=== PATIENT | female | born 1990 | race Caucasian/White ===

== ENCOUNTER → 2018-03-18 | Outpatient (CLI) | payer BC ==
[~2018-03-18] MED LIST: ACYC800 PO; CIPR500 PO; HYDACE5325 PO; IBUP800 PO; OXYACE5T PO; PENVK500 PO; PROM25 PO; SULTRIDS PO
== END ==
LOC: LAB 11:18 → LAB SHORT 11:18
PROVIDERS: Obstetrics & Gynecology
DX: Z01.419 Encounter for gynecological examination (general) (routine) without abnormal findings (principal)
CPT/HCPCS: G0123

== ENCOUNTER 2021-11-04 19:52 | Emergency (ER) | payer BC ==
[~2021-11-04] VITALS: Ht 180.3 cm; Wt 172.4 kg
[2021-11-04 20:42] LABS: BASOPHILS ABSOLUTE AUTO 0.08 K/mm3 (0.00-0.23); BASOPHILS PERCENT AUTO 1 % (0-2); EOSINOPHILS ABSOLUTE AUTO 0.11 K/mm3 (0.00-0.68); EOSINOPHILS PERCENT AUTO 1 % (0-6); Hematocrit 44.1 % (33.0-51.0); Hemoglobin 15.2 g/dL (11.5-16.0); IMMATURE GRAN ABSOLUTE AUTO 0.02 K/mm3 (0.00-0.10); IMMATURE GRAN PERCENT AUTO 0 % (0-1); LYMPHOCYTES PERCENT AUTO 27 % (21-46); MONOCYTES PERCENT AUTO 6 % (4-13); Mean Corpuscular HGB 29.5 pg (26.0-34.0); Mean Corpuscular HGB Conc 34.5 g/dL (31.5-36.5); Mean Corpuscular Volume 86 fL (80-100); Mean Platelet Volume 10.2 fL (9.1-12.4); NEUTROPHILS ABSOLUTE AUTO 7.47 K/mm3 (1.96-9.15); NEUTROPHILS PERCENT AUTO 65 % (41-73); Platelet Count 297 K/mm3 (150-400); RDW Coefficient Variation 12.2 % (11.7-14.2); RDW Standard Deviation 38.2 fL (35.1-46.3); Red Blood Cell Count 5.15 M/mm3 (3.80-5.20); White Blood Cell Count 11.48 K/mm3 (4.00-11.30)
[2021-11-04 21:07] LABS: Source, Urine Clean Catch
[2021-11-04 21:07] LABS: Alanine Aminotransfer (ALT/SGP 40 U/L (12-78); Albumin, Blood 3.9 g/dL (3.4-5.0); Alk Phos 107 U/L (50-136); Anion Gap 9 mmol/L (6-16); Aspartate Aminotrans (AST/SGOT 30 U/L (12-37); Bilirubin, Total 0.5 mg/dL (0.1-1.0); Blood Urea Nitrogen 11 mg/dL (8-24); Bun/Creatinine Ratio 14.8 (12.0-20.0); CO2, Blood 28 mmol/L (21-32); Calcium, Blood 9.1 mg/dL (8.5-10.1); Chloride, Blood 106 mmol/L (98-108); Creatinine, Blood 0.74 mg/dL (0.40-1.00); Globulin, Blood 4.1 g/dL (2.2-4.0); Glomerular Filtration Rate >60 (60-); Glucose, Blood 87 mg/dL (70-99); Potassium, Blood 3.9 mmol/L (3.5-5.5); Sodium, Blood 143 mmol/L (136-145)
[2021-11-04 21:11] LABS: Appearance, Urine Cloudy (Clear); Bilirubin, Urine Neg (Neg); Blood, Urine 2+ (Neg); Color, Urine Yellow (P-Yellow); Glucose Qualitative, Urine Neg (Neg); Ketones, Urine Neg (Neg); Leukocyte Esterase, Urine 2+ (Neg); Nitrite, Urine Neg (Neg); Protein, Urine 1+ (Neg); Urobilinogen, Urine 1+ (Normal)
[2021-11-04 21:30] LABS: Bacteria Many /hpf; Mucus Heavy (0-Heavy); Red Blood Cells, Urine 0-2 /hpf (0-2); Squamous Epithelial Cells Many /hpf (Few)
[2021-11-04 21:31] LABS: Hyaline Casts 0-2 /lpf (0-2); Transitional Epithelial Cells Rare /hpf (0-Rare)
[2021-11-05] MEDS ORDERED: CEFD300 PO (02:28)
[2021-11-05] MEDS ORDERED: METR500 PO (02:28)
== END 2021-11-05 02:50 | disposition home or self-care (01) ==
LOC: ER 19:52
PROVIDERS: Physician Assistant
DX: N39.0 Urinary tract infection, site not specified (principal)
CPT/HCPCS: 36415; 74176; 80053; 81001; 84703; 85025; 86850; 86900; 86901; 87086; 96365; 96375; 99284-25; J0696; J1885; J2405

== ENCOUNTER → 2022-02-20 | Outpatient (CLI) | payer BC ==
[~2022-02-20] MED LIST changes: +ATOR10 PO; +CEFD300 PO; +DECARA1250 MC1 PO; +MEDR10 PO; +METFORMIN HCL500 M3 PO; +METR500 PO; +PROG100 PO; +SPIRONOLACTONE50 MG PO
== END ==
LOC: LAB 13:35 → LAB SHORT 13:35
DX: N85.9 Noninflammatory disorder of uterus, unspecified (principal)
CPT/HCPCS: 88305

== ENCOUNTER 2022-03-22 09:04 | Day surgery (SDC) | payer BC ==
[~2022-03-22] VITALS: Ht 180.3 cm; Wt 168.6 kg
--- NOTE | 2022-03-22 11:41 | NUR ---
STATES SHE FEELS THE NEED TO " USE RESTROOM" NO PAIN EXPLAINED IN/OUT CATH WAS DONE
--- NOTE | 2022-03-22 12:08 | NUR ---
PT TO STEP. DENIES PAIN OR NAUSES. STATES SHE FEELS SHE NEEDS TO VOICE. SMALL AMOUNT OF RED DRAINAGE NOTED ON ALBA PAD. MODERATE AMOUNT OF RED DRAINAGE ON BED. UP TO BATHROOM TO VOID.
--- NOTE | 2022-03-22 12:32 | NUR ---
REPORT GIVEN TO STEFANY MCKEON RN.
--- NOTE | 2022-03-22 13:01 | NUR ---
1240- Discharge instructions reviewed with patient. Patient verbalizes understanding. Copy given to patient to take home. PT SLOWLY GETTING DRESSED. STATES STILL FEELS ALITTLE NAUSEATED BUT HAS BEEN ABLE TO TAKE DOWN WATER AND JELLO. DRESSED, GAVE 2ND DOSE OF PERCOCET PER ORDER. 7/10 PELVIC PAIN. ALBA PAD WAS CHANGED, SMALL AMOUNT OF BRIGHT RED BLOOD THAT APPEARED TO BE WATERY ON PAD. Discharged via wheelchair to private car for ride home. AND CRACKERS SENT WITH PT.
== END 2022-03-22 13:04 | disposition home or self-care (01) ==
LOC: ORSCMMR 09:04 → ORD 10:30 → ORSCMMR 10:30
PROVIDERS: Obstetrics & Gynecology
PROC: 0UDB8ZX Extraction of Endometrium, Via Natural or Artificial Opening Endoscopic, Diagnostic (ICD-10-PCS; principal; 2022-03-22 10:30)
PROC: 0UH97HZ Insertion of Contraceptive Device into Uterus, Via Natural or Artificial Opening (ICD-10-PCS; principal; 2022-03-22 10:30)
DX: N85.02 Endometrial intraepithelial neoplasia [EIN] (principal); E78.5 Hyperlipidemia, unspecified; K21.9 Gastro-esophageal reflux disease without esophagitis; E28.2 Polycystic ovarian syndrome; E66.01 Morbid (severe) obesity due to excess calories; Z68.43 Body mass index [BMI] 50.0-59.9, adult; Z79.84 Long term (current) use of oral hypoglycemic drugs; Z79.899 Other long term (current) drug therapy
CPT/HCPCS: 88305; A9270; J1100; J1885; J2250; J2370; J2405; J2704; J2765; J3010; J7120; J7298

== ENCOUNTER 2022-06-10 09:01 | Day surgery (SDC) | payer BC ==
[~2022-06-10] VITALS: Ht 180.3 cm; Wt 163.1 kg
[~2022-06-10 09:01] MED LIST changes: +ANAS1 PO; +B-100 COMPLEX1 EACH PO; +FERSU300 PO; +KRILL OIL 1,001 EACH PO; +Phentermine HCl15 MG PO
--- NOTE | 2022-06-10 10:03 | NUR ---
Ambulatory in Day Surgery. History, Chart, Medications and Allergies reviewed before start of procedure. Patient States Post-Procedure ride home has been arranged .
--- NOTE | 2022-06-10 11:30 | NUR ---
06/10/22 1130 Ascencion Guerrero EXISTING IUD REMOVED BY . DISCARDED PER MD AND PT. NO ABX PER MD. 100CC CLEAR YELLOW URINE IN TRIVEDI UPON DC.
--- NOTE | 2022-06-10 12:49 | NUR ---
Patient up to Ambulate independently. Gait steady. Discharge instructions reviewed with patient. Patient verbalizes understanding. Copy given to patient to take home. Patient States Post-Procedure ride home has been arranged. Discharged via wheelchair to private car for ride home.
== END 2022-06-10 23:48 | disposition home or self-care (01) ==
LOC: ORSCMMR 09:01 → ORD 09:45 → ORSCMMR 09:45 → ORD 10:30 → ORSCMMR 23:48
PROVIDERS: Obstetrics & Gynecology
PROC: 0UH97HZ Insertion of Contraceptive Device into Uterus, Via Natural or Artificial Opening (ICD-10-PCS; principal; 2022-06-10 10:15)
PROC: 0UDB8ZX Extraction of Endometrium, Via Natural or Artificial Opening Endoscopic, Diagnostic (ICD-10-PCS; principal; 2022-06-10 10:15)
PROC: 0UB98ZX Excision of Uterus, Via Natural or Artificial Opening Endoscopic, Diagnostic (ICD-10-PCS; principal; 2022-06-10 10:15)
DX: N85.02 Endometrial intraepithelial neoplasia [EIN] (principal); E28.2 Polycystic ovarian syndrome; F41.8 Other specified anxiety disorders; E66.01 Morbid (severe) obesity due to excess calories; Z68.43 Body mass index [BMI] 50.0-59.9, adult; Z79.899 Other long term (current) drug therapy
CPT/HCPCS: 88305; A9270; J1100; J1885; J2250; J2405; J2704; J3010; J7120; J7298

== ENCOUNTER 2022-09-16 05:59 | Day surgery (SDC) | payer BC ==
[~2022-09-16] VITALS: Ht 180.3 cm; Wt 155.0 kg
[~2022-09-16 05:59] MED LIST changes: +WEGOVY0.5 MG/0.5 SC
--- NOTE | 2022-09-16 07:57 | NUR ---
09/16/22 0757 No Strauss (LEVONORGESTREL 52MG) IUD LOT# [id number] EXP: SEP 2024
--- NOTE | 2022-09-16 09:20 | NUR ---
Ambulatory in Day SurgeryPatient up to Ambulate independently. Gait steady. Discharge instructions reviewed with patient. Patient verbalizes understanding. Copy given to patient to take home. Patient States Post-Procedure ride home has been arranged. Discharged via wheelchair to private car for ride home. PT HAS SCANT BRIGHT RED BLEEDING ON PAD, PT WAS ABLE TO VOID MODERATE AMOUNTS OF URIN BEFORE DISCHARGE HOME
== END 2022-09-16 23:16 | disposition home or self-care (01) ==
LOC: ORSCMMR 05:59 → ORD 07:30 → ORSCMMR 23:16
PROVIDERS: Obstetrics & Gynecology
PROC: 0UDB8ZX Extraction of Endometrium, Via Natural or Artificial Opening Endoscopic, Diagnostic (ICD-10-PCS; principal; 2022-09-16 07:30)
PROC: 0U2DXHZ Change Contraceptive Device in Uterus and Cervix, External Approach (ICD-10-PCS; principal; 2022-09-16 07:30)
DX: N85.02 Endometrial intraepithelial neoplasia [EIN] (principal); Z30.2 Encounter for sterilization; E78.5 Hyperlipidemia, unspecified; E28.2 Polycystic ovarian syndrome; E66.01 Morbid (severe) obesity due to excess calories; Z68.42 Body mass index [BMI] 45.0-49.9, adult; Z79.899 Other long term (current) drug therapy
CPT/HCPCS: 88305; J1100; J1885; J2250; J2405; J2704; J3010; J7120; J7298

== ENCOUNTER 2022-12-15 10:19 | Emergency (ER) | payer BC ==
[~2022-12-15] VITALS: Ht 177.8 cm; Wt 144.7 kg
[~2022-12-15 10:19] MED LIST changes: +ONDA4ODT MM
[2022-12-15 10:57] LABS: BASOPHILS ABSOLUTE AUTO 0.08 K/mm3 (0.00-0.23); BASOPHILS PERCENT AUTO 1 % (0-2); EOSINOPHILS ABSOLUTE AUTO 0.43 K/mm3 (0.00-0.68); EOSINOPHILS PERCENT AUTO 4 % (0-6); Hematocrit 43.8 % (33.0-51.0); Hemoglobin 15.1 g/dL (11.5-16.0); IMMATURE GRAN ABSOLUTE AUTO 0.04 K/mm3 (0.00-0.10); IMMATURE GRAN PERCENT AUTO 0 % (0-1); LYMPHOCYTES ABSOLUTE AUTO 2.71 K/mm3 (0.84-5.20); LYMPHOCYTES PERCENT AUTO 22 % (21-46); MONOCYTES ABSOLUTE AUTO 0.57 K/mm3 (0.16-1.47); MONOCYTES PERCENT AUTO 5 % (4-13); Mean Corpuscular HGB 30.1 pg (26.0-34.0); Mean Corpuscular HGB Conc 34.5 g/dL (31.5-36.5); Mean Corpuscular Volume 87 fL (80-100); Mean Platelet Volume 10.3 fL (9.1-12.4); NEUTROPHILS ABSOLUTE AUTO 8.33 K/mm3 (1.96-9.15); NEUTROPHILS PERCENT AUTO 69 % (41-73); Platelet Count 294 K/mm3 (150-400); RDW Coefficient Variation 12.1 % (11.7-14.2); RDW Standard Deviation 38.8 fL (35.1-46.3); Red Blood Cell Count 5.01 M/mm3 (3.80-5.20); White Blood Cell Count 12.16 K/mm3 (4.00-11.30)
[2022-12-15 11:07] LABS: Source, Urine Clean Catch
[2022-12-15 11:11] LABS: Bilirubin, Urine Neg (Neg); Blood, Urine 1+ (Neg); Glucose Qualitative, Urine Neg (Neg); Ketones, Urine 1+ (Neg); Leukocyte Esterase, Urine 1+ (Neg); Nitrite, Urine Neg (Neg); Protein, Urine 1+ (Neg); Urobilinogen, Urine NORM (Normal)
[2022-12-15 11:25] LABS: Albumin/Globulin Ratio 0.9 (0.8-1.8); Bilirubin, Total 0.3 mg/dL (0.1-1.0); Bun/Creatinine Ratio 14.9 (12.0-20.0); Calcium, Blood 9.3 mg/dL (8.5-10.1); Creatinine, Blood 0.67 mg/dL (0.40-1.00); Globulin, Blood 4.4 g/dL (2.2-4.0); Potassium, Blood 3.8 mmol/L (3.5-5.5); Total Protein, Blood 8.4 g/dL (6.4-8.2)
[2022-12-15 12:05] LABS: Appearance, Urine Hazy (Clear); Color, Urine Yellow (P-Yellow)
[2022-12-15 12:07] LABS: Bacteria Mod /hpf; Red Blood Cells, Urine 0-2 /hpf (0-2); Squamous Epithelial Cells Few /hpf (Few)
[2022-12-15] MEDS ORDERED: DOCU100 PO (13:15)
[2022-12-15] MEDS ORDERED: Percocet 5-3251 EACH PO (13:15)
== END 2022-12-15 13:39 | disposition home or self-care (01) ==
LOC: ER 10:19
PROVIDERS: Emergency Medicine
DX: K63.89 Other specified diseases of intestine (principal); D72.829 Elevated white blood cell count, unspecified; Z79.899 Other long term (current) drug therapy
CPT/HCPCS: 36415; 74177; 80053; 81001; 84703; 85025; J2270; J2405; Q9967

== ENCOUNTER 2023-04-17 09:08 | Emergency (ER) | payer BC ==
[~2023-04-17] VITALS: Ht 180.3 cm; Wt 158.8 kg
[~2023-04-17 09:08] MED LIST changes: +DOCU100 PO; +Percocet 5-3251 EACH PO
[2023-04-17 09:19] VITALS: BP 158/112
[2023-04-17 09:50] LABS: Source, Urine Clean Catch
[2023-04-17 10:14] LABS: Appearance, Urine Hazy (Clear); Bilirubin, Urine Neg (Neg); Blood, Urine Neg (Neg); Color, Urine Yellow (P-Yellow); Glucose Qualitative, Urine Neg (Neg); Ketones, Urine Neg (Neg); Leukocyte Esterase, Urine 1+ (Neg); Nitrite, Urine Neg (Neg); Protein, Urine Neg (Neg); Urobilinogen, Urine NORM (Normal)
[2023-04-17 10:39] LABS: Bacteria Many /hpf; Hyaline Casts 0-2 /lpf (0-2); Squamous Epithelial Cells Mod /hpf (Few)
[2023-04-17 10:40] LABS: Red Blood Cells, Urine 0-2 /hpf (0-2)
[2023-04-17] MEDS ORDERED: NITR100CA PO (11:02)
== END 2023-04-17 11:15 | disposition home or self-care (01) ==
LOC: ER 09:08
PROVIDERS: Student in an Organized Health Care Education/Training Program
DX: N39.0 Urinary tract infection, site not specified (principal); M54.50 Low back pain, unspecified; R11.2 Nausea with vomiting, unspecified; R42 Dizziness and giddiness; R26.81 Unsteadiness on feet
CPT/HCPCS: 81001; A9270; J1885

== ENCOUNTER → 2023-10-27 | Outpatient (CLI) | payer BC ==
[~2023-10-27] MED LIST changes: +NITR100CA PO
== END | disposition home or self-care (01) ==
LOC: LAB 18:42 → LAB SHORT 18:42
DX: N39.0 Urinary tract infection, site not specified (principal)
CPT/HCPCS: 87086

== ENCOUNTER → 2023-12-11 | Outpatient (CLI) | payer BC | END | disposition home or self-care (01) | LOC: LAB 09:33 → LAB SHORT 09:33 | DX: R30.0 Dysuria (principal) | CPT/HCPCS: 87077; 87086; 87186 ==

== ENCOUNTER 2024-01-08 19:46 | Emergency (ER) | payer BC ==
[~2024-01-08] VITALS: Ht 180.3 cm; Wt 117.9 kg
[2024-01-08 20:32] LABS: BASOPHILS ABSOLUTE AUTO 0.07 K/mm3 (0.00-0.23); BASOPHILS PERCENT AUTO 1 % (0-2); EOSINOPHILS ABSOLUTE AUTO 0.13 K/mm3 (0.00-0.68); EOSINOPHILS PERCENT AUTO 1 % (0-6); Hematocrit 39.8 % (33.0-51.0); IMMATURE GRAN ABSOLUTE AUTO 0.03 K/mm3 (0.00-0.10); IMMATURE GRAN PERCENT AUTO 0 % (0-1); LYMPHOCYTES ABSOLUTE AUTO 3.33 K/mm3 (0.84-5.20); LYMPHOCYTES PERCENT AUTO 27 % (21-46); MONOCYTES ABSOLUTE AUTO 0.56 K/mm3 (0.16-1.47); MONOCYTES PERCENT AUTO 5 % (4-13); Mean Corpuscular HGB 29.8 pg (26.0-34.0); Mean Corpuscular HGB Conc 35.2 g/dL (31.5-36.5); Mean Corpuscular Volume 85 fL (80-100); Mean Platelet Volume 10.3 fL (9.1-12.4); NEUTROPHILS ABSOLUTE AUTO 8.04 K/mm3 (1.96-9.15); NEUTROPHILS PERCENT AUTO 66 % (41-73); Platelet Count 281 K/mm3 (150-400); RDW Coefficient Variation 11.9 % (11.7-14.2); RDW Standard Deviation 36.2 fL (35.1-46.3); White Blood Cell Count 12.16 K/mm3 (4.00-11.30)
[2024-01-08 20:50] LABS: Albumin, Blood 3.5 g/dL (3.4-5.0); Albumin/Globulin Ratio 0.8 (0.8-1.8); Bilirubin, Total 0.3 mg/dL (0.1-1.0); Calcium, Blood 9.4 mg/dL (8.5-10.1); Creatinine, Blood 0.63 mg/dL (0.40-1.00); Globulin, Blood 4.2 g/dL (2.2-4.0); Potassium, Blood 3.6 mmol/L (3.5-5.5); Total Protein, Blood 7.7 g/dL (6.4-8.2)
[2024-01-08] MEDS ORDERED: Ketorolac Tromethamine 15mg Vial IV ONE (22:00)
[2024-01-08] MEDS ORDERED: HyDROXyzine HCl 25 MG Tab PO ONE (22:05)
[2024-01-08 22:15] VITALS: BP 126/69
== END 2024-01-08 22:51 | disposition home or self-care (01) ==
LOC: ER 19:46
PROVIDERS: Emergency Medicine
DX: R07.89 Other chest pain (principal); R06.02 Shortness of breath; Z79.84 Long term (current) use of oral hypoglycemic drugs; Z79.899 Other long term (current) drug therapy
CPT/HCPCS: 71046; 80053; 84484; 85025; 93005; 93010; 96374; 99285-25; A9270; J1885

== ENCOUNTER 2024-05-14 18:44 | Emergency (ER) | payer BC ==
[~2024-05-14] VITALS: Ht 180.3 cm; Wt 167.8 kg
[2024-05-14 19:07] VITALS: BP 151/90
== END 2024-05-14 21:01 | disposition home or self-care (01) ==
LOC: ER 18:44
DX: O9A.211 Injury, poisoning and certain other consequences of external causes complicating pregnancy, first trimester (principal); S61.213A Laceration without foreign body of left middle finger without damage to nail, initial encounter; W26.0XXA Contact with knife, initial encounter; Z79.899 Other long term (current) drug therapy; Z79.84 Long term (current) use of oral hypoglycemic drugs; Z3A.01 Less than 8 weeks gestation of pregnancy
CPT/HCPCS: 12001; 99282-25

== ENCOUNTER → 2024-05-31 | Outpatient (CLI) | payer BC | LOC: LAB 13:51 → LAB SHORT 13:51 | DX: R10.9 Unspecified abdominal pain (principal) | CPT/HCPCS: 87086 ==

== ENCOUNTER → 2024-07-02 | Outpatient (CLI) | payer BC ==
[2024-07-23 10:47] LABS: HPV HIGH RISK BY TMA Not Detected; HPV SOURCE Vaginal
== END ==
LOC: LAB 16:21 → LAB SHORT 16:21
PROVIDERS: Obstetrics & Gynecology
DX: O09.90 Supervision of high risk pregnancy, unspecified, unspecified trimester (principal); O09.91 Supervision of high risk pregnancy, unspecified, first trimester
CPT/HCPCS: 87624; G0123

== ENCOUNTER 2024-12-05 22:29 | Observation (INO) | payer BC ==
[~2024-12-05] VITALS: Ht 180.3 cm; Wt 165.9 kg
[2024-12-05 22:42] VITALS: BP 138/82
[2024-12-05] MEDS ORDERED: Lactated Ringer's 1,000 ML IV ONE ×2 (22:43→23:05)
[2024-12-05 23:20] VITALS: BP 143/77
[2024-12-05 23:30] LABS: BASOPHILS ABSOLUTE AUTO 0.04 K/mm3 (0.00-0.23); BASOPHILS PERCENT AUTO 0 % (0-2); EOSINOPHILS ABSOLUTE AUTO 0.09 K/mm3 (0.00-0.68); EOSINOPHILS PERCENT AUTO 1 % (0-6); Hematocrit 34.8 % (33.0-51.0); Hemoglobin 12.3 g/dL (11.5-16.0); IMMATURE GRAN ABSOLUTE AUTO 0.11 K/mm3 (0.00-0.10); IMMATURE GRAN PERCENT AUTO 1 % (0-1); LYMPHOCYTES ABSOLUTE AUTO 2.18 K/mm3 (0.84-5.20); LYMPHOCYTES PERCENT AUTO 16 % (21-46); MONOCYTES ABSOLUTE AUTO 0.77 K/mm3 (0.16-1.47); MONOCYTES PERCENT AUTO 6 % (4-13); Mean Corpuscular HGB 30.2 pg (26.0-34.0); Mean Corpuscular HGB Conc 35.3 g/dL (31.5-36.5); Mean Corpuscular Volume 86 fL (80-100); Mean Platelet Volume 10.7 fL (9.1-12.4); NEUTROPHILS ABSOLUTE AUTO 10.07 K/mm3 (1.96-9.15); NEUTROPHILS PERCENT AUTO 76 % (41-73); Platelet Count 241 K/mm3 (150-400); RDW Coefficient Variation 12.8 % (11.7-14.2); RDW Standard Deviation 39.3 fL (35.1-46.3); Red Blood Cell Count 4.07 M/mm3 (3.80-5.20); White Blood Cell Count 13.26 K/mm3 (4.00-11.30)
[2024-12-05] MEDS ORDERED: Acetaminophen 500 MG Tab PO PRN (23:35)
[2024-12-05 23:36] VITALS: BP 139/74
[2024-12-05 23:51] VITALS: BP 137/73
[2024-12-05 23:54] LABS: International Normalized Ratio 0.95; Prothrombin Time Results 10.2 Sec (9.7-11.5)
[2024-12-06 00:06] VITALS: BP 131/72
[2024-12-06 00:12] LABS: Albumin, Blood 2.4 g/dL (3.4-5.0); Albumin/Globulin Ratio 0.5 (0.8-1.8); Bilirubin, Total 0.3 mg/dL (0.1-1.0); Bun/Creatinine Ratio 11.4 (12.0-20.0); Calcium, Blood 9.8 mg/dL (8.5-10.1); Creatinine, Blood 0.44 mg/dL (0.40-1.00); Globulin, Blood 4.7 g/dL (2.2-4.0); Potassium, Blood 4.1 mmol/L (3.5-5.5); Total Protein, Blood 7.1 g/dL (6.4-8.2)
[2024-12-06 00:21] VITALS: BP 137/73
[2024-12-06 00:51] VITALS: BP 136/72
[2024-12-06] MEDS ORDERED: MAGCHL64ER (00:53)
[2024-12-06] MEDS ORDERED: ASPI81CH PO (00:53)
[2024-12-06 01:06] VITALS: BP 134/70
[2024-12-06 03:31] VITALS: BP 144/60
[2024-12-06 05:50] LABS: BASOPHILS ABSOLUTE AUTO 0.03 K/mm3 (0.00-0.23); BASOPHILS PERCENT AUTO 0 % (0-2); EOSINOPHILS ABSOLUTE AUTO 0.07 K/mm3 (0.00-0.68); EOSINOPHILS PERCENT AUTO 1 % (0-6); Hematocrit 34.1 % (33.0-51.0); IMMATURE GRAN ABSOLUTE AUTO 0.07 K/mm3 (0.00-0.10); IMMATURE GRAN PERCENT AUTO 1 % (0-1); LYMPHOCYTES PERCENT AUTO 19 % (21-46); MONOCYTES ABSOLUTE AUTO 0.75 K/mm3 (0.16-1.47); MONOCYTES PERCENT AUTO 6 % (4-13); Mean Corpuscular HGB 30.3 pg (26.0-34.0); Mean Corpuscular HGB Conc 35.2 g/dL (31.5-36.5); Mean Corpuscular Volume 86 fL (80-100); Mean Platelet Volume 10.6 fL (9.1-12.4); NEUTROPHILS ABSOLUTE AUTO 8.94 K/mm3 (1.96-9.15); NEUTROPHILS PERCENT AUTO 74 % (41-73); Platelet Count 224 K/mm3 (150-400); RDW Coefficient Variation 12.9 % (11.7-14.2); RDW Standard Deviation 39.8 fL (35.1-46.3); Red Blood Cell Count 3.96 M/mm3 (3.80-5.20); White Blood Cell Count 12.16 K/mm3 (4.00-11.30)
[2024-12-06 06:05] LABS: International Normalized Ratio 0.94; Prothrombin Time Results 10.1 Sec (9.7-11.5)
[2024-12-06 06:10] LABS: Albumin, Blood 2.2 g/dL (3.4-5.0); Albumin/Globulin Ratio 0.5 (0.8-1.8); Bilirubin, Total 0.3 mg/dL (0.1-1.0); Bun/Creatinine Ratio 12.4 (12.0-20.0); Calcium, Blood 9.3 mg/dL (8.5-10.1); Creatinine, Blood 0.4 mg/dL (0.40-1.00); Globulin, Blood 4.1 g/dL (2.2-4.0); Potassium, Blood 3.5 mmol/L (3.5-5.5); Total Protein, Blood 6.3 g/dL (6.4-8.2)
[2024-12-06 06:30] VITALS: BP 123/72
== END 2024-12-06 06:41 | disposition home or self-care (01) ==
LOC: OBS 22:29 → BC 22:33 → OBS 23:37 → BC 23:37
PROVIDERS: Advanced Practice Midwife; ADMIT Obstetrics & Gynecology
DX: O36.8130 Decreased fetal movements, third trimester, not applicable or unspecified (principal); O99.891 Other specified diseases and conditions complicating pregnancy; M54.50 Low back pain, unspecified; R10.2 Pelvic and perineal pain; Z3A.34 34 weeks gestation of pregnancy; W10.9XXA Fall (on) (from) unspecified stairs and steps, initial encounter
CPT/HCPCS: 36415; 59025; 76815; 76819; 80053; 81003; 85025; 85384; 85610; 85730; 96360; 99214; A9270; J7120

== ENCOUNTER → 2024-12-21 | Outpatient (CLI) | payer BC ==
[~2024-12-21] MED LIST changes: +ASPI81CH PO; +MAGCHL64ER
[2024-12-21 13:47] LABS: BASOPHILS ABSOLUTE AUTO 0.03 K/mm3 (0.00-0.23); BASOPHILS PERCENT AUTO 0 % (0-2); EOSINOPHILS ABSOLUTE AUTO 0.07 K/mm3 (0.00-0.68); EOSINOPHILS PERCENT AUTO 1 % (0-6); Hematocrit 34.5 % (33.0-51.0); Hemoglobin 12.1 g/dL (11.5-16.0); IMMATURE GRAN ABSOLUTE AUTO 0.05 K/mm3 (0.00-0.10); IMMATURE GRAN PERCENT AUTO 0 % (0-1); LYMPHOCYTES ABSOLUTE AUTO 1.59 K/mm3 (0.84-5.20); LYMPHOCYTES PERCENT AUTO 14 % (21-46); MONOCYTES ABSOLUTE AUTO 0.51 K/mm3 (0.16-1.47); MONOCYTES PERCENT AUTO 4 % (4-13); Mean Corpuscular HGB 29.7 pg (26.0-34.0); Mean Corpuscular HGB Conc 35.1 g/dL (31.5-36.5); Mean Corpuscular Volume 85 fL (80-100); Mean Platelet Volume 11.5 fL (9.1-12.4); NEUTROPHILS ABSOLUTE AUTO 9.37 K/mm3 (1.96-9.15); NEUTROPHILS PERCENT AUTO 81 % (41-73); Platelet Count 263 K/mm3 (150-400); RDW Coefficient Variation 13.1 % (11.7-14.2); RDW Standard Deviation 39.8 fL (35.1-46.3); Red Blood Cell Count 4.08 M/mm3 (3.80-5.20); White Blood Cell Count 11.62 K/mm3 (4.00-11.30)
[2024-12-21 14:45] LABS: Albumin, Blood 2.3 g/dL (3.4-5.0); Albumin/Globulin Ratio 0.5 (0.8-1.8); Bilirubin, Total 0.3 mg/dL (0.1-1.0); Calcium, Blood 8.8 mg/dL (8.5-10.1); Creatinine, Blood 0.43 mg/dL (0.40-1.00); Globulin, Blood 4.4 g/dL (2.2-4.0); Potassium, Blood 3.7 mmol/L (3.5-5.5); Total Protein, Blood 6.7 g/dL (6.4-8.2)
[2024-12-21 15:50] LABS: Creatinine, Urine Random 83.6 mg/dL (27.00-270.00); Protein, Urine Random 12.5 mg/dL (0.0-11.9); Protein/Creat Ratio, Ur Random 0.1
== END | disposition home or self-care (01) ==
LOC: LAB SHORT 09:27
PROVIDERS: Obstetrics & Gynecology
DX: O09.93 Supervision of high risk pregnancy, unspecified, third trimester (principal)
CPT/HCPCS: 36415; 80053; 82570; 84156; 85025; 87081; 87150

== ENCOUNTER 2024-12-28 09:54 | Inpatient (IN) | payer BC ==
[2024-12-28] VITALS (13 sets, daily range): BP systolic 120–204; BP diastolic 67–96
[~2024-12-28] VITALS: Ht 180.3 cm; Wt 168.0 kg
[2024-12-28] MEDS ORDERED: Magnesium Oxide 400 MG Tab PO ONE (11:20)
[2024-12-28] MEDS ORDERED: Metoclopramide HCl 10 MG Tab PO ONE (11:20)
[2024-12-28 11:59] LABS: BASOPHILS ABSOLUTE AUTO 0.04 K/mm3 (0.00-0.23); BASOPHILS PERCENT AUTO 0 % (0-2); EOSINOPHILS ABSOLUTE AUTO 0.06 K/mm3 (0.00-0.68); EOSINOPHILS PERCENT AUTO 1 % (0-6); Hematocrit 38.7 % (33.0-51.0); Hemoglobin 13.3 g/dL (11.5-16.0); IMMATURE GRAN ABSOLUTE AUTO 0.04 K/mm3 (0.00-0.10); IMMATURE GRAN PERCENT AUTO 0 % (0-1); LYMPHOCYTES ABSOLUTE AUTO 1.46 K/mm3 (0.84-5.20); LYMPHOCYTES PERCENT AUTO 13 % (21-46); MONOCYTES ABSOLUTE AUTO 0.56 K/mm3 (0.16-1.47); MONOCYTES PERCENT AUTO 5 % (4-13); Mean Corpuscular HGB 29.5 pg (26.0-34.0); Mean Corpuscular HGB Conc 34.4 g/dL (31.5-36.5); Mean Corpuscular Volume 86 fL (80-100); NEUTROPHILS ABSOLUTE AUTO 8.78 K/mm3 (1.96-9.15); NEUTROPHILS PERCENT AUTO 80 % (41-73); Platelet Count 265 K/mm3 (150-400); RDW Coefficient Variation 13.1 % (11.7-14.2); RDW Standard Deviation 40.4 fL (35.1-46.3); Red Blood Cell Count 4.51 M/mm3 (3.80-5.20); White Blood Cell Count 10.94 K/mm3 (4.00-11.30)
[2024-12-28 12:15] LABS: Creatinine, Urine Random 90.7 mg/dL (27.00-270.00); Protein/Creat Ratio, Ur Random 0.1
[2024-12-28 12:39] LABS: Albumin, Blood 2.6 g/dL (3.4-5.0); Albumin/Globulin Ratio 0.5 (0.8-1.8); Bilirubin, Total 0.3 mg/dL (0.1-1.0); Bun/Creatinine Ratio 8.6 (12.0-20.0); Calcium, Blood 9.6 mg/dL (8.5-10.1); Creatinine, Blood 0.47 mg/dL (0.40-1.00); Globulin, Blood 5.1 g/dL (2.2-4.0); Potassium, Blood 3.7 mmol/L (3.5-5.5); Total Protein, Blood 7.7 g/dL (6.4-8.2)
[2024-12-28] MEDS ORDERED: Acetamin/Butalbital/Caffeine Tab PO ONE (15:50)
[2024-12-28] MEDS ORDERED: FentaNYL Citrate 50 MCG/ML 2 ML Injection IV PRN (20:25)
[2024-12-28] MEDS ORDERED: Acetaminophen 500 MG Tab PO PRN (20:50)
[2024-12-28] MEDS ORDERED: Calcium Carbonate 500 MG Tab Chew PO PRN (20:50)
[2024-12-28] MEDS ORDERED: Ondansetron HCl 2 MG / ML 2ML Vial IV PRN (20:50)
[2024-12-28] MEDS ORDERED: Oxytocin 10 Unit / ML Vial IM PRN (20:50)
[2024-12-28] MEDS ORDERED: Misoprostol 200 MCG Tab BC PRN (20:50)
[2024-12-28] MEDS ORDERED: Lactated Ringer's 1,000 ML IV PRN ×4 (20:50→22:55)
[2024-12-28] MEDS ORDERED: Carboprost Tromethamine 250 MCG/ML 1ML Amp IM PRN (20:50)
[2024-12-28] MEDS ORDERED: Methylergonovine Maleate 0.2MG / ML 1ML Amp IM PRN (20:50)
[2024-12-28] MEDS ORDERED: Misoprostol 200 MCG Tab PR PRN (20:50)
[2024-12-28] MEDS ORDERED: OXYTOCIN/RINGER'S LACTATE 500 ML IV PRN (20:50)
[2024-12-28] MEDS ORDERED: Tranexamic Acid 100 ML IV SCH (21:00)
[2024-12-28] MEDS ORDERED: OXYTOCIN/RINGER'S LACTATE 500 ML IV SCH (21:25)
[2024-12-28] MEDS ORDERED: ACYC800 PO (22:02)
[2024-12-28] MEDS ORDERED: ePHEDrine Sulfate 50 MG/ML 1ML Injection XX PRN (22:55)
[2024-12-28] MEDS ORDERED: FentaNYL 2mcg/ml-Bup 0.1% Epd 250 ML EPI PRN (22:55)
[2024-12-29] VITALS (21 sets, daily range): BP systolic 107–187; BP diastolic 58–97
[2024-12-29] MEDS ORDERED: Misoprostol 25 MCG Tab PO SCH
[2024-12-29] MEDS ORDERED: FentaNYL Citrate 50 MCG/ML 2 ML Injection IV PRN (01:00)
[2024-12-29] MEDS ORDERED: Acetamin/Butalbital/Caffeine Tab PO ONE (08:15)
[2024-12-29 19:03] LABS: BASOPHILS ABSOLUTE AUTO 0.02 K/mm3 (0.00-0.23); BASOPHILS PERCENT AUTO 0 % (0-2); EOSINOPHILS ABSOLUTE AUTO 0.06 K/mm3 (0.00-0.68); EOSINOPHILS PERCENT AUTO 1 % (0-6); Hematocrit 33.9 % (33.0-51.0); IMMATURE GRAN ABSOLUTE AUTO 0.03 K/mm3 (0.00-0.10); IMMATURE GRAN PERCENT AUTO 0 % (0-1); LYMPHOCYTES ABSOLUTE AUTO 1.77 K/mm3 (0.84-5.20); LYMPHOCYTES PERCENT AUTO 17 % (21-46); MONOCYTES PERCENT AUTO 6 % (4-13); Mean Corpuscular HGB Conc 35.4 g/dL (31.5-36.5); Mean Corpuscular Volume 85 fL (80-100); NEUTROPHILS ABSOLUTE AUTO 7.86 K/mm3 (1.96-9.15); NEUTROPHILS PERCENT AUTO 76 % (41-73); Platelet Count 246 K/mm3 (150-400); RDW Coefficient Variation 13.2 % (11.7-14.2); RDW Standard Deviation 40.5 fL (35.1-46.3); White Blood Cell Count 10.34 K/mm3 (4.00-11.30)
[2024-12-29 19:17] LABS: Protein, Urine Random 15.7 mg/dL (0.0-11.9); Protein/Creat Ratio, Ur Random 0.1
[2024-12-29 19:27] LABS: Albumin, Blood 2.4 g/dL (3.4-5.0); Albumin/Globulin Ratio 0.6 (0.8-1.8); Bilirubin, Total 0.4 mg/dL (0.1-1.0); Bun/Creatinine Ratio 11.7 (12.0-20.0); Calcium, Blood 9.1 mg/dL (8.5-10.1); Creatinine, Blood 0.51 mg/dL (0.40-1.00); Globulin, Blood 4.3 g/dL (2.2-4.0); Potassium, Blood 3.8 mmol/L (3.5-5.5); Total Protein, Blood 6.7 g/dL (6.4-8.2)
[2024-12-30] VITALS (32 sets, daily range): BP systolic 109–193; BP diastolic 52–118
[2024-12-30] MEDS ORDERED: Azithromycin 500 MG in NS 250 ML IV SCH (22:50)
[2024-12-30] MEDS ORDERED: CeFAZolin Sodium 3,000 MG in NS 100 ML IV SCH (22:50)
[2024-12-30] MEDS ORDERED: Metoclopramide HCl 5MG / ML 2ML Vial IV PRN (22:55)
[2024-12-30] MEDS ORDERED: Citric Acid/Sodium Citrate 30 ML BTL PO PRN (22:55)
[2024-12-30] MEDS ORDERED: Oxytocin 10 Unit / ML Vial ONE (23:38)
[2024-12-30] MEDS ORDERED: Lidocaine HCl 2% 10 ML SDA ONE (23:38)
[2024-12-30] MEDS ORDERED: Phenylephrine HCl 100 MCG/ML-NS 10MLSYR (1MG/10ML) ONE (23:54)
[2024-12-30] MEDS ORDERED: Ondansetron HCl 2 MG / ML 2ML Vial ONE (23:54)
[2024-12-31] VITALS (13 sets, daily range): BP systolic 92–145; BP diastolic 48–87
[2024-12-31] MEDS ORDERED: Lidocaine HCl 2% 10 ML SDA ONE (00:33)
[2024-12-31] MEDS ORDERED: FentaNYL Citrate 50 MCG/ML 2 ML Injection ONE (00:37)
[2024-12-31] MEDS ORDERED: HYDROmorphone HCl/Pf 1MG SYR ONE (01:18)
[2024-12-31] MEDS ORDERED: HYDROmorphone HCl/Pf 1MG SYR IV ONE (01:25)
[2024-12-31] MEDS ORDERED: HYDROmorphone 1 MG/ML 30 ML Bag IV PRN (01:40)
[2024-12-31] MEDS ORDERED: Metoclopramide HCl 10 MG Tab PO PRN (02:40)
[2024-12-31] MEDS ORDERED: Carboprost Tromethamine 250 MCG/ML 1ML Amp IM PRN (02:40)
[2024-12-31] MEDS ORDERED: Misoprostol 200 MCG Tab PR PRN (02:40)
[2024-12-31] MEDS ORDERED: Rho(D) Immune Globulin 300 MCG / SYR IM SCH (02:45)
[2024-12-31] MEDS ORDERED: Simethicone 80 MG Chew PO PRN (02:45)
[2024-12-31] MEDS ORDERED: Lanolin Cream TOP PRN (02:45)
[2024-12-31] MEDS ORDERED: Measles/Mumps/Rubella Vaccine 0.5 ML Vial SC ONE (02:45)
[2024-12-31] MEDS ORDERED: DiphenhydrAMINE HCL 25 MG Cap PO PRN (02:45)
[2024-12-31] MEDS ORDERED: Ondansetron HCl 2 MG / ML 2ML Vial IV PRN (02:45)
[2024-12-31] MEDS ORDERED: Magnesium Hydroxide Conc 10 ML UDC PO PRN (02:45)
[2024-12-31] MEDS ORDERED: Lactated Ringer's 1,000 ML IV SCH (02:45)
[2024-12-31] MEDS ORDERED: OxyCODONE HCL 5 MG TAB PO PRN (02:50)
[2024-12-31] MEDS ORDERED: OXYTOCIN/RINGER'S LACTATE 500 ML IV SCH (02:50)
[2024-12-31] MEDS ORDERED: Promethazine HCl 25 MG Tab PO PRN (02:50)
[2024-12-31] MEDS ORDERED: Acetaminophen 500 MG Tab PO ONE (03:00)
[2024-12-31] MEDS ORDERED: Acetaminophen 500 MG Tab PO PRN (03:00)
[2024-12-31] MEDS ORDERED: Ketorolac Tromethamine 30mg Vial IV SCH (03:00)
[2024-12-31] MEDS ORDERED: Morphine Sulfate 4 MG/1 ML Injection IV PRN (03:55)
[2024-12-31] MEDS ORDERED: Oxytocin 10 Unit / ML Vial IM ONE (03:55)
--- NOTE | 2024-12-31 06:54 | NUR ---
PT PADS CHANGED. OR SLIDER SHEET REMOVED. PT CLEANED UP WITH BABY WIPES. CAN MOVE LEGS BUT REQUIRES MAX ASSIST TO COMPLETE CARE
[2024-12-31 07:44] LABS: BASOPHILS ABSOLUTE AUTO 0.03 K/mm3 (0.00-0.23); BASOPHILS PERCENT AUTO 0 % (0-2); EOSINOPHILS ABSOLUTE AUTO 0.01 K/mm3 (0.00-0.68); EOSINOPHILS PERCENT AUTO 0 % (0-6); Hematocrit 30.1 % (33.0-51.0); Hemoglobin 10.7 g/dL (11.5-16.0); IMMATURE GRAN ABSOLUTE AUTO 0.06 K/mm3 (0.00-0.10); IMMATURE GRAN PERCENT AUTO 1 % (0-1); LYMPHOCYTES ABSOLUTE AUTO 1.63 K/mm3 (0.84-5.20); LYMPHOCYTES PERCENT AUTO 12 % (21-46); MONOCYTES ABSOLUTE AUTO 0.91 K/mm3 (0.16-1.47); MONOCYTES PERCENT AUTO 7 % (4-13); Mean Corpuscular HGB 29.8 pg (26.0-34.0); Mean Corpuscular HGB Conc 35.5 g/dL (31.5-36.5); Mean Corpuscular Volume 84 fL (80-100); Mean Platelet Volume 10.8 fL (9.1-12.4); NEUTROPHILS ABSOLUTE AUTO 10.61 K/mm3 (1.96-9.15); NEUTROPHILS PERCENT AUTO 80 % (41-73); Platelet Count 205 K/mm3 (150-400); RDW Standard Deviation 39.4 fL (35.1-46.3); Red Blood Cell Count 3.59 M/mm3 (3.80-5.20); White Blood Cell Count 13.25 K/mm3 (4.00-11.30)
[2024-12-31] MEDS ORDERED: Polyethylene Glycol 3350 17 gm PO SCH (09:00)
[2024-12-31] MEDS ORDERED: Docusate Sodium 100 MG Cap PO SCH (09:00)
[2024-12-31] MEDS ORDERED: Prenatal Vit/FE Fumarate/FA 1 Tab PO SCH (09:00)
--- NOTE | 2024-12-31 10:28 | NUR ---
GAVE SCHEDULED TORODAL AND TYLENOL AND SWITCHED FROM CONTINUOUS & PRODUCTION GENERALIST TO PRODUCTION GENERALIST ONLY PER DISCUSSION WITH DR LUNSFORD AND PT.
[2024-12-31] MEDS ORDERED: Enoxaparin 40 MG/0.4 ML SYR SC SCH (12:30)
[2024-12-31] MEDS ORDERED: Ibuprofen 400 MG Tab PO SCH (16:50)
[2025-01-01] MEDS ORDERED: Ibuprofen 400 MG Tab PO SCH
[2025-01-01 01:18] VITALS: BP 148/65
[2025-01-01 05:30] VITALS: BP 139/70
[2025-01-01 07:09] VITALS: BP 121/73
[2025-01-01 11:00] VITALS: BP 131/73
[2025-01-01 17:38] VITALS: BP 130/64
[2025-01-01 20:44] VITALS: BP 135/72
[2025-01-02 02:27] VITALS: BP 101/51
[2025-01-02 07:43] VITALS: BP 133/76
[2025-01-02] MEDS ORDERED: IBUP800 PO (10:07)
[2025-01-02] MEDS ORDERED: OXAYDO5 M1 (10:08)
[2025-01-02] MEDS ORDERED: ACET325 PO (10:08)
== END 2025-01-02 11:10 | disposition home or self-care (01) | DRG 787 ==
LOC: BC 09:54 → OBS 09:54 → BC 09:55 → OBS 19:36 → BC 19:39
PROVIDERS: Family Medicine; ADMIT Obstetrics & Gynecology
PROC: 0U7C7ZZ Dilation of Cervix, Via Natural or Artificial Opening (ICD-10-PCS; 2024-12-30)
PROC: 10D00Z1 Extraction of Products of Conception, Low, Open Approach (ICD-10-PCS; principal; 2024-12-31)
PROC: 10E0XZZ Delivery of Products of Conception, External Approach (ICD-10-PCS; 2024-12-31)
DX: O10.92 Unspecified pre-existing hypertension complicating childbirth (principal); O98.32 Other infections with a predominantly sexual mode of transmission complicating childbirth; Z37.0 Single live birth; Z3A.38 38 weeks gestation of pregnancy; O99.214 Obesity complicating childbirth; E66.01 Morbid (severe) obesity due to excess calories; A60.00 Herpesviral infection of urogenital system, unspecified; O99.344 Other mental disorders complicating childbirth; F41.8 Other specified anxiety disorders; O36.63X0 Maternal care for excessive fetal growth, third trimester, not applicable or unspecified; Z98.890 Other specified postprocedural states; Z79.899 Other long term (current) drug therapy
CPT/HCPCS: 36415; 51702; 59025; 59200; 80053; 82570; 84156; 85025; 86850; 86900; 86901; 86923; 99214; A9270; J0456; J0690; J1171; J1650; J1885; J2003; J2371; J2405; J2590; J3010; J7050; J7120